=== PATIENT | male | born 1975 | race African-American/Black ===

== ENCOUNTER 2022-04-30 04:08 | Emergency (ER) | payer OTHER ==
[2022-04-30 05:11] VITALS: BP 130/76; PULSE 66; RESP 18; TEMP 98.1; BMI 28.0
== END 2022-04-30 07:01 | disposition home or self-care (01) ==
LOC: JER 04:08
DX: E11.9 Type 2 diabetes mellitus without complications (principal)
CPT/HCPCS: 82962; 99283-25